=== PATIENT | male | born 1985 ===

== ENCOUNTER 2016-12-03 04:36 | Inpatient (IN) | payer MEDICARE, MEDICAID ==
[~2016-12-03 04:36] MED LIST: ANCEF,KEFZOL-DPS1 GM IV; CALCIUM ACETAT667 M1 PO; CARVEDILOL25 MG PO; CATAPRES0.3 MG PO; CYMBALTA30 MG PO; HYDROCODONE 10M10 MG PO; LEVAQUIN DPS500 MG PO; METHYLDOPA250 MG PO; NORCO 10-325 T1 EACH PO; NORVASC DPS10 MG PO; PHOS-LO667 MG PO; RENA-VITE RX T1 EACH PO; RENVELA800 MG PO; TYLENOL DPS325 MG PO; VALIUM-DPS10 MG PO; VANCO 1 GR1 GM/250 M IV; [UNRECOGNIZED DRUG - OTHER] PO
[2016-12-05] MEDS ORDERED: DIAZEPAM10 MG PO (11:04)
[2016-12-05] MEDS ORDERED: PROVENTIL2.5 MG/3 M IH (11:07)
== END 2016-12-04 13:35 | disposition home or self-care (01) | DRG 640 ==
DX: E87.5 Hyperkalemia (principal); N18.6 End stage renal disease; Q61.3 Polycystic kidney, unspecified; N02.8 Recurrent and persistent hematuria with other morphologic changes; N25.0 Renal osteodystrophy; I10 Essential (primary) hypertension; I16.0 Hypertensive urgency; D63.8 Anemia in other chronic diseases classified elsewhere; R79.89 Other specified abnormal findings of blood chemistry; F40.240 Claustrophobia; G43.909 Migraine, unspecified, not intractable, without status migrainosus; F41.9 Anxiety disorder, unspecified; F32.9 Major depressive disorder, single episode, unspecified; Z99.2 Dependence on renal dialysis; Z91.15 Patient's noncompliance with renal dialysis; Z86.14 Personal history of Methicillin resistant Staphylococcus aureus infection

== ENCOUNTER 2017-01-11 15:38 | Emergency (ER) | payer MEDICARE, MEDICAID ==
[~2017-01-11 15:38] MED LIST changes: +DIAZEPAM10 MG PO; +PROVENTIL2.5 MG/3 M IH
--- NOTE | 2017-01-18 18:57 | ER ---
ADMIT: 01/11/2017 RM/LOC: ER [facility] MR#: [id number] [id number] [place], [place] [id number] AMAURY KING [address] [address] Emergency Room Report SEX: M AGE: 31 : 1985 DATE: 01/11/2017 CHIEF COMPLAINT: Blood in urine. HISTORY OF PRESENT ILLNESS: This is a 31-year-old male, does dialysis, does not really create much urine, but he has been noticing blood at the meatus when there would be any urine. COURSE IN THE ER: CBC and renal CT were done. Renal CT showed no acute findings. CBC is normal except for a hemoglobin of 11.2. I am going to discharge him home. CLINICAL IMPRESSION: Hematuria. ROBEL Zhu / Paul Roe MD / symonel JOB #: [id number] CC: Paul Roe MD, Attending Physician Geoffrey Dewey MD, Family Physician
== END 2017-01-11 17:48 | disposition home or self-care (01) ==
LOC: ER 15:38
DX: R31.9 Hematuria, unspecified (principal); I12.0 Hypertensive chronic kidney disease with stage 5 chronic kidney disease or end stage renal disease; N18.6 End stage renal disease; Z99.2 Dependence on renal dialysis; Z90.89 Acquired absence of other organs; Z88.0 Allergy status to penicillin; Z88.5 Allergy status to narcotic agent; Z88.8 Allergy status to other drugs, medicaments and biological substances; Z91.041 Radiographic dye allergy status; Z79.899 Other long term (current) drug therapy